=== PATIENT | female | born 1985 | race African-American/Black ===

== ENCOUNTER 2017-02-12 21:22 | Emergency (ER) | payer SELFPAY ==
[2017-02-12 21:06] VITALS: BP 163/100; BMI 44.6
[2017-02-12 22:20] LABS: BILIRUBIN,URINE NEGATIVE (NEGATIVE); BLOOD/HEMOGLOBIN,URINE NEGATIVE (NEGATIVE); GLUCOSE, URINE NEGATIVE (NEGATIVE); KETONES,URINE NEGATIVE (NEGATIVE); LEUKOCYTE ESTERASE ,URINE 1+ (NEGATIVE); NITRITES,URINE POSITIVE (NEGATIVE); PROTEIN,URINE 1+ (NEGATIVE); UROBILINOGEN,URINE NORMAL (NORMAL)
[2017-02-12 22:26] LABS: APPEARANCE,URINE CLOUDY (CLEAR); COLOR,URINE YELLOW (YELLOW); RBC,URINE NONE SEEN /HPF (NEGATIVE)
[2017-02-12 22:27] LABS: BACTERIA,URINE 2+ /HPF (NEGATIVE); SQUAMOUS EPITHELIAL CELL,UR FEW /HPF (NEGATIVE)
--- NOTE | 2017-02-12 22:30 | DR.GENAD ---
HPI - PCP Primary Care Physician: NFD - Complaint/Symptoms Chief Complaint Doctors Comments: Patient states that her LMP was 01/10/17. She c /o back pain stomach pain, all symptoms. Chief Complaint:: PT STATES" I HAD MY TUBES TIED AND BURNT BUT I'M HAVING SYMPTOMS. I TOOK A HOME TEST IT WAS NEGATIVE" - Source History Provided: Patient - Mode of Arrival Mode of Arrival: Ambulatory - Timing Onset of Chief Complaint: 01/15/17 PMH - PMH Past Medical History: No Past Surgical History: Yes Surgical History: Appendectomy, , [employer] Surgery, Tonsillectomy Past Surgical History Comment: DNC - Family History History of Family Medical Conditions: Yes Family Medical History: Hypertension - Social History Does patient currently use any type of tobacco product: No Have you used tobacco products in the last 12 months: No Type of Tobacco Use: Cigarettes Does any household member use tobacco: No Alcohol Use: None Do you use any recreational Drugs:: No Lives With: Family Lives Where: Home - infectious screening In the last 2 months have you had wt loss of >10#?: NO Have you had fever, night sweats or hemotysis?: No Have you traveled outside the country in the last 6 months?: No Isolation: Standard ROS - Review of Systems Constitutional: No Symptoms Reported Eyes: No Symptoms Reported ENTM: No Symptoms Reported Respiratoy: No Symptoms Reported Cardiovascular: No Symptoms Reported Gastrointestinal/Abdominal: No Symptoms Reported Genitourinary: No Symptoms Reported Neurological: No Symptoms Reported Musculoskeletal: No Symptoms Reported Integumentary: No Symptoms Reported Hematologic/Lymphatic: No Symptoms Reported Endocrine: No Symptoms Reported Psychiatric: No Symptoms Reported All Other Systems: Reviewed and Negative PE - Vital Signs Vitals: Temperature 100 F Pulse Rate 100 Respiratory Rate 18 Blood Pressure 163/100 O2 Sat by Pulse Oximetry 99 - General Limitations: No Limitations General Appearance: Alert, In No Apparent Distress - Head Head Exam: Normal Inspection, Atraumatic - Eyes Eye exam: Normal Appearance, PERRL, EOMI - ENT ENT Exam: Normal Exam External Ear Exam: Normal External Inspection TM/Canal Exam: Bilateral Normal Nose Exam: Normal Nose Exam Mouth Exam: Normal Inspection Throat Exam: Normal Inspection - Neck Neck Exam: Normal Inspection - Chest Chest Inspection: Normal Inspection - Respiratory Respiratory Exam: Normal Lung Sounds Bilat Respiratory Exam: Bilateral Clear to Auscultation - Cardiovascular Cardiovascular Exam: Regular Rate, Normal Rhythm - Extremities Extremities Exam: Normal Inspection, Full ROM, Other (suprapubic pain) - Back Back Exam: Normal Inspection - Neurologic Neurological Exam: Alert, Oriented X3, CN II-XII Intact - Psychiatric Psychiatric Exam: Normal Affect, Normal Mood - Skin Skin Exam: Warm, Dry, Intact ROR - Labs Reviewed Laboratory Results Reviewed?: Yes (Urine: leuk +, WBC 6-8) Result Diagrams: 02/12/17 22:40 02/12/17 22:40 Laboratory: WBC 15.9 X10^3/uL (3.6-10.0) H 02/12/17 22:40 RBC 4.46 X10^6/uL (3.5-5.4) 02/12/17 22:40 Hgb 9.9 g/dL (12.0-16.0) L 02/12/17 22:40 Hct 31.9 % (36.0-47.0) L 02/12/17 22:40 MCV 71.5 fL (80.0-100.0) L 02/12/17 22:40 MCH 22.2 pg (27.0-34.0) L 02/12/17 22:40 MCHC 31.1 g/dL (33.0-35.0) L 02/12/17 22:40 RDW 17.4 % (11.6-16.5) H 02/12/17 22:40 Plt Count 318 X10^3/uL (150.0-450.0) 02/12/17 22:40 Plt Count Comment Adequate (ADEQUATE) 02/12/17 22:40 MPV 7.6 fL (7.4-11.0) 02/12/17 22:40 Neut % 66.7 % (42.0-75.0) 02/12/17 22:40 Lymph % 23.1 % (21.0-51.0) 02/12/17 22:40 [place] % 8.7 % (0.0-13.0) 02/12/17 22:40 Eos % 0.7 % (0.9-2.9) L 02/12/17 22:40 Baso % 0.8 % (0.2-1.0) 02/12/17 22:40 Neut # 10.6 x10^3/uL (2.2-4.8) H 02/12/17 22:40 Lymph # 3.7 X10^3/uL (1.3-2.9) H 02/12/17 22:40 [place] # 1.4 x10^3/uL (0.3-0.8) H 02/12/17 22:40 Eos # 0.1 x10^3/uL (0.0-0.2) 02/12/17 22:40 Baso # 0.1 X10^3/uL (0.0-0.1) 02/12/17 22:40 Absolute Nucleated RBC 0.0 /100WBC 02/12/17 22:40 Plt Morphology Comment Normal (NORMAL) 02/12/17 22:40 RBC Morphology Abnormal (NORMAL) A 02/12/17 22:40 Hypochromasia 1+ A 02/12/17 22:40 Microcytosis 1+ A 02/12/17 22:40 Sodium 143 mmol/L (136-145) 02/12/17 22:40 Corrected Sodium TNP 02/12/17 22:40 Potassium 3.7 mmol/L (3.5-5.1) 02/12/17 22:40 Chloride 108 mmol/L (98-107) H 02/12/17 22:40 Carbon Dioxide 25.8 mmol/L (21-32) 02/12/17 22:40 BUN 10 mg/dL (7-18) 02/12/17 22:40 Creatinine 1.05 mg/dL (0.55-1.02) H 02/12/17 22:40 Est GFR (MDRD) Af Amer > 60 (>60) 02/12/17 22:40 Est GFR (MDRD) Non-Af > 60 (>60) 02/12/17 22:40 Glucose 105 mg/dL (65-99) H 02/12/17 22:40 Calcium 8.6 mg/dL (8.5-10.1) 02/12/17 22:40 Corrected Calcium TNP 02/12/17 22:40 Total Bilirubin 0.10 mg/dL (0.2-1.0) L 02/12/17 22:40 AST 16 Units/L (15-37) 02/12/17 22:40 ALT 25 Units/L (12-78) 02/12/17 22:40 Alkaline Phosphatase 130 Units/L (46-116) H 02/12/17 22:40 Total Protein 7.3 g/dL (6.4-8.2) 02/12/17 22:40 Albumin 3.5 g/dL (3.4-5.0) 02/12/17 22:40 Globulin 3.8 g/dL (2.5-4.5) 02/12/17 22:40 Albumin/Globulin Ratio 0.9 Ratio (1.1-2.1) L 02/12/17 22:40 Specimen Type Clean catch urine 02/12/17 21:58 Urine Color Yellow (YELLOW) 02/12/17 21:58 Urine Appearance Cloudy (CLEAR) 02/12/17 21:58 Urine pH 6.0 (5.0 - 8.0) 02/12/17 21:58 Ur Specific [place] 1.025 (1.000-1.030) 02/12/17 21:58 Urine Protein 1+ (NEGATIVE) 02/12/17 21:58 Urine Glucose (UA) Negative (NEGATIVE) 02/12/17 21:58 Urine Ketones Negative (NEGATIVE) 02/12/17 21:58 Urine Occult Blood Negative (NEGATIVE) 02/12/17 21:58 Urine Nitrite Positive (NEGATIVE) 02/12/17 21:58 Urine Bilirubin Negative (NEGATIVE) 02/12/17 21:58 Urine Urobilinogen Normal (NORMAL) 02/12/17 21:58 Ur Leukocyte Esterase 1+ (NEGATIVE) 02/12/17 21:58 Urine RBC None seen /HPF (NEGATIVE) 02/12/17 21:58 Urine WBC 6-8 /HPF (NEGATIVE) 02/12/17 21:58 Ur Squamous Epith Cells Few /HPF (NEGATIVE) 02/12/17 21:58 Urine Bacteria 2+ /HPF (NEGATIVE) 02/12/17 21:58 Ur Culture Indicated? Yes/culture set up 02/12/17 21:58 - Diagnosis Discharge Problem: UTI (urinary tract infection) Qualifiers: Urinary tract infection type: acute cystitis Hematuria presence: without hematuria Qualified Code(s): N30.00 - Acute cystitis without hematuria - Discharge Plan Condition: Stable - Follow ups/Referrals Follow ups/Referrals: NFD,None [Primary Care Provider] - 3 days - Instructions
[2017-02-12 22:49] LABS: BASOPHILS # (AUTO) 0.1 X10^3/uL (0.0-0.1); BASOPHILS % (AUTO) 0.8 % (0.2-1.0); EOSINOPHILS # (AUTO) 0.1 x10^3/uL (0.0-0.2); EOSINOPHILS % (AUTO) 0.7 % (0.9-2.9); HEMATOCRIT 31.9 % (36.0-47.0); HEMOGLOBIN 9.9 g/dL (12.0-16.0); LYMPHOCYTES # (AUTO) 3.7 X10^3/uL (1.3-2.9); LYMPHOCYTES % (AUTO) 23.1 % (21.0-51.0); MEAN CORPUSCULAR HEMOGLOBIN 22.2 pg (27.0-34.0); MEAN CORPUSCULAR HGB CONC 31.1 g/dL (33.0-35.0); MEAN CORPUSCULAR VOLUME 71.5 fL (80.0-100.0); MEAN PLATELET VOLUME 7.6 fL (7.4-11.0); MONOCYTES # (AUTO) 1.4 x10^3/uL (0.3-0.8); MONOCYTES % (AUTO) 8.7 % (0.0-13.0); NEUTROPHILS # (AUTO) 10.6 x10^3/uL (2.2-4.8); NEUTROPHILS % (AUTO) 66.7 % (42.0-75.0); PLATELET COUNT 318 X10^3/uL (150.0-450.0); RED BLOOD COUNT 4.46 X10^6/uL (3.5-5.4); RED CELL DISTRIBUTION WIDTH 17.4 % (11.6-16.5); WHITE BLOOD COUNT 15.9 X10^3/uL (3.6-10.0)
[2017-02-12 22:56] LABS: HYPOCHROMASIA 1+; MICROCYTOSIS 1+; PLATELET MORPHOLOGY COMMENT NORMAL (NORMAL)
[2017-02-12 23:00] LABS: ALANINE AMINOTRANSFERASE 25 Units/L (12-78); ALBUMIN 3.5 g/dL (3.4-5.0); ALKALINE PHOSPHATASE 130 Units/L (46-116); ASPARTATE AMINO TRANSFERASE 16 Units/L (15-37); BLOOD UREA NITROGEN 10 mg/dL (7-18); CALCIUM 8.6 mg/dL (8.5-10.1); CARBON DIOXIDE 25.8 mmol/L (21-32); CHLORIDE 108 mmol/L (98-107); CREATININE 1.05 mg/dL (0.55-1.02); GLUCOSE 105 mg/dL (65-99); SODIUM 143 mmol/L (136-145); TOTAL PROTEIN 7.3 g/dL (6.4-8.2); eGFR BLACK RACES > 60 (>60); eGFR NON BLACK RACES > 60 (>60)
== END 2017-02-12 23:45 | disposition home or self-care (01) ==
LOC: ER 21:22
DX: N30.00 Acute cystitis without hematuria (principal); B96.29 Other Escherichia coli [E. coli] as the cause of diseases classified elsewhere
CPT/HCPCS: 36415; 80053; 81001; 85025; 87086; 87088; 87186; 99282